=== PATIENT | male | born 1960 | race Hispanic/Latino ===

== ENCOUNTER 2016-08-14 08:35 | Day surgery (SDC) | payer OTHER ==
[~2016-08-14] VITALS: Ht 172.7 cm; Wt 77.1 kg
[~2016-08-14 08:35] MED LIST: 0.9% Sodium Chloride 1,000 ML IV SCH; ASCO-294 PO; ASPI-973 PO; ATOR20TA PO; CALC600T12 PO; CHOL10008 PO; GLUC500T12 PO; LORA10CA PO; RANI150C4 PO; Sodium Chloride LOK Flush 10 mL Syringe IV PRN; fentaNYL-PF 50 mCg/mL 2 mL Inj IVPUSH PRN
[2016-08-14 09:06] VITALS: BP 132/87; PULSE 74; RESP 17; O2SAT 100
[2016-08-14 10:00] VITALS: BP 110/64; PULSE 73; RESP 16; O2SAT 96
[2016-08-14 10:10] VITALS: BP 115/69; PULSE 77; RESP 16; O2SAT 95
--- NOTE | 2016-08-14 10:14 | ENDO ---
[address] [address] ENDOSCOPY PROCEDURE PATIENT: LATONIA PARIKH : 1960 MR#: [id number] ADMIT: 08/14/2016 JOB ID: [id number] DATE: 08/14/2016 PROCEDURE: Colonoscopy. INDICATIONS: Screening in a patient with personal history of colon polyps. The patient's ASA classification is 1. Mallampati score is 2. MEDICATIONS: 1. Versed 5 mg. 2. Fentanyl 100 mcg. INSTRUMENT USED: PCF H 180 AL. PREPARATION QUALITY: Was good. PROCEDURE DETAILS: After informed consent was obtained, the patient was brought into the GI suite where he was placed on oxygen via nasal cannula and monitored with continuous pulse oximeter, telemetry and blood pressure monitoring. A time-out was performed. Then, he was placed in the left lateral decubitus position and medications were administered for sedation. Digital rectal examination with palpation of the prostate was performed, which was unremarkable. The colonoscope was then inserted into the rectum and advanced under direct visualization to the cecum, which was identified by the presence of the ileocecal valve and appendiceal orifice. Once the cecum was reached, the colonoscope was withdrawn back into the rectum as mucosa and lumen were examined. In the rectum, retroflexion was performed. Following retroflexion, remaining air in the rectum was suctioned, and procedure was completed. FINDINGS: 1. In the sigmoid colon, there was a diminutive polyp that was removed with cold biopsy forceps. 2. Otherwise normal examination from rectum to cecum. IMPRESSION: Sigmoid colon polyp. RECOMMENDATIONS: Repeat colonoscopy in five years, sooner if symptoms should dictate. COMPLICATIONS: None. ESTIMATED BLOOD LOSS: Less than 5 mL.
[2016-08-14 10:20] VITALS: BP 105/64; PULSE 70; RESP 16; O2SAT 96
--- NOTE | 2016-08-15 13:28 | PATH ---
SURGICAL PATHOLOGY Attending Physician:Margarita Brewer CASE STATUS: Signed Out PATIENT NAME: LATONIA PARIKH PID: [id number] : 1960 DATE COLLECTED:08/14/2016 16:40 SPECIMEN: Colon, Biopsy CLINICAL HISTORY: 1. SIGMOID COLON BX FINAL DIAGNOSIS: 1.SIGMOID COLON BIOPSY: HYPERPLASTIC POLYP. ICD10 CODE K63.5 GROSS DESCRIPTION: The specimen is received in one formalin filled container labeled with the patient's name, sublabeled "sigmoid colon" and consists of 2 portions of tissue which aggregate to 0.2 x 0.2 x 0.2 CM. The specimen is entirely submitted in one cassette. 08/14/2016 [facility] MICRO DESCRIPTION: See diagnosis. ICD-9 CODES: CPT CODES: 1: 63507 Electronically Signed Out Nichelle Dupree MD [facility] Pathology [facility] [address], [place] [address] Technical component performed at [facility], [facility] [address], [address]
== END 2016-08-14 23:59 | disposition home or self-care (01) ==
LOC: END 08:35
PROVIDERS: ATTEND Internal Medicine Gastroenterology
DX: Z12.11 Encounter for screening for malignant neoplasm of colon (principal); K63.5 Polyp of colon; B18.2 Chronic viral hepatitis C; J43.9 Emphysema, unspecified; K76.0 Fatty (change of) liver, not elsewhere classified; Z86.010 Personal history of colon polyps; Z72.0 Tobacco use
CPT/HCPCS: 45380; G0500; J2250; J3010; J7030